=== PATIENT | female | born 1965 | race Caucasian/White ===

== ENCOUNTER 2016-07-22 08:28 | Day surgery (SDC) | payer OTHER, MEDICARE ==
[2016-07-17 20:26] LABS: HEMATOCRIT 39.8 % (36.0-48.0); HEMOGLOBIN 13.1 g/dL (12.0-16.0)
[2016-07-17 20:33] LABS: BUN (BLOOD UREA NITROGEN) 14 MG/DL (6-23); CALCIUM, SERUM 9.2 MG/DL (8.5-10.4); CHLORIDE, SERUM 100 MMOL/L (96-112); CO2 (CARBON DIOXIDE) 27 MMOL/L (24-34); CREATININE 0.71 MG/DL (0.55-1.02); GFR AFRICAN AMERICAN 116 ML/MIN (>=60); GFR NON AFRICAN AMERICAN 100 ML/MIN (>=60); GLUCOSE, SERUM 252 MG/DL (60-99); POTASSIUM, SERUM 4.2 MMOL/L (3.5-5.3); SODIUM, SERUM 139 MMOL/L (135-148)
[~2016-07-22 08:28] MED LIST: BUSPAR15 M1 PO; ESTRACE1 MG PO; FARXIGA10 PO; LATUDA40 MG PO; LEVOTHYROXIN150 MCG PO; LEVOTHYROXIN88 MCG PO; LIPITOR20 PO; TRADJENTA5 MG PO; TRESIBA FLEXTOUCH SC; ULTRAM50 PO; VICTOZA18 MG/3 ML SC
== END 2016-07-22 14:19 | disposition home or self-care (01) ==
LOC: SDC 08:28
PROVIDERS: Ophthalmology
PROC: 08R83KZ Replacement of Right Cornea with Nonautologous Tissue Substitute, Percutaneous Approach (ICD-10-PCS; principal; 2016-07-22 10:45)
DX: H18.50 Unspecified hereditary corneal dystrophies (principal); F43.10 Post-traumatic stress disorder, unspecified; G90.50 Complex regional pain syndrome I, unspecified; G35 Multiple sclerosis; J45.909 Unspecified asthma, uncomplicated; E78.5 Hyperlipidemia, unspecified; M19.90 Unspecified osteoarthritis, unspecified site; K21.9 Gastro-esophageal reflux disease without esophagitis; E11.9 Type 2 diabetes mellitus without complications; E03.9 Hypothyroidism, unspecified; F41.9 Anxiety disorder, unspecified; E78.00 Pure hypercholesterolemia, unspecified; F32.9 Major depressive disorder, single episode, unspecified; D64.9 Anemia, unspecified; Z88.0 Allergy status to penicillin; Z88.8 Allergy status to other drugs, medicaments and biological substances; Z79.899 Other long term (current) drug therapy; Z88.5 Allergy status to narcotic agent; Z90.49 Acquired absence of other specified parts of digestive tract; Z90.710 Acquired absence of both cervix and uterus; Z87.442 Personal history of urinary calculi; Z98.890 Other specified postprocedural states
CPT/HCPCS: 36415; 80048; 82962; 85014; 85018; 87070; 87102; 87205; 88304; 88313; 93005; A9270-GY; J2250; J2405; J3010; V2785